=== PATIENT | male | born 1970 | race Caucasian/White ===

== ENCOUNTER 2018-02-01 02:15 | Emergency (ER) | payer MEDICAID, OTHER ==
[~2018-02-01] VITALS: Ht 188 cm; Wt 85.0 kg
[2018-02-01 03:12] LABS: BASOPHILS # (AUTO) 0.1 X10'3 (0-0.2); BASOPHILS % (AUTO) 1.7 % (0-1); EOSINOPHILS # (AUTO) 0.1 X10'3 (0-0.9); EOSINOPHILS % (AUTO) 1.6 % (0-6); HEMATOCRIT 43.9 % (42.0-52.0); HEMOGLOBIN 14.8 g/dl (14.0-17.9); LYMPHOCYTES # (AUTO) 1.9 X10'3 (1.1-4.8); MEAN CORPUSCULAR HEMOGLOBIN 29.5 PG (27.0-31.0); MEAN CORPUSCULAR HGB CONC 33.8 % (33.0-36.5); MEAN CORPUSCULAR VOLUME 87.5 FL (78-98); MEAN PLATELET VOLUME 7.8 FL (7.4-10.4); MONOCYTES # (AUTO) 0.3 X10'3 (0-0.9); NEUTROPHILS # (AUTO) 2.8 X10'3 (1.8-7.7); NEUTROPHILS % (AUTO) 54.7 % (42-75); PLATELET COUNT 206 X10'3 (140-440); RED BLOOD COUNT 5.02 X10'6 (4.70-6.10); RED CELL DISTRIBUTION WIDTH 20.8 % (11.5-14.5); WHITE BLOOD COUNT 5.2 X10'3 (4.5-11.0)
[2018-02-01 03:24] LABS: ALANINE AMINOTRANSFERASE 39 U/L (12-78); ALBUMIN 3.9 G/DL (3.4-5.0); ALKALINE PHOSPHATASE 62 IU/L (46-116); ANION GAP 14 (8-16); ASPARTATE AMINO TRANSFERASE 48 U/L (10-37); BILIRUBIN,TOTAL 0.4 MG/DL (0.1-1.0); BLOOD UREA NITROGEN 8 MG/DL (7-18); BUN/CREATININE RATIO 8.2 (5.4-32.0); CALCIUM 8.5 MG/DL (8.5-10.1); CHLORIDE 104 MMOL/L (99-107); CREATININE 0.98 MG/DL (0.60-1.10); GLUCOSE 81 MG/DL (70-104); POTASSIUM 3.4 MMOL/L (3.5-5.1); SODIUM 140 MMOL/L (135-145); TOTAL CARBON DIOXIDE 22.3 MMOL/L (24-32); eGFR 82 ML/MIN
[2018-02-01 03:32] LABS: ETHANOL 0.323 GM/DL (0.0-0.010)
[2018-02-01] MEDS ORDERED: normal saline 1000ml 1,000 ML IV ONE (03:55)
[2018-02-01 04:24] LABS: MAGNESIUM 2.2 MG/DL (1.5-2.4)
[2018-02-01 08:37] LABS: URINE AMPHETAMINE SCREEN NEGATIVE (Neg); URINE BARBITUATE SCREEN NEGATIVE (Neg); URINE BENZODIAZEPINES SCREEN NEGATIVE (Neg); URINE CANNABINOID SCREEN NEGATIVE (Neg); URINE COCAINE SCREEN NEGATIVE (Neg); URINE METHADONE SCREEN NEGATIVE (Neg); URINE OPIATE SCREEN NEGATIVE (Neg); URINE PHENCYCLIDINE SCREEN NEGATIVE (Neg)
[2018-02-01 08:50] LABS: CLARITY,URINE CLEAR (Clear); COLOR,URINE YELLOW (Yellow); GLUCOSE, URINE NEGATIVE (Neg); PH,URINE 5.5 (4.8-8.0); PROTEIN,URINE TRACE mg/dl (Neg)
[2018-02-01 08:51] LABS: KETONES,URINE 15 mg/dl (Neg); LEUKOCYTE ESTERASE ,URINE NEGATIVE (Neg); NITRITES, URINE NEGATIVE (Neg); OCCULT BLOOD,URINE MODERATE (Neg); UROBILINOGEN,URINE 0.2 E.U/dL (0.2-1.0)
[2018-02-01 08:54] LABS: UA COLLECTION TYPE NON-SPECIFIED
[2018-02-01 09:02] LABS: RBC,URINE 0-2 /HPF (0-2)
[2018-02-01 09:03] LABS: BACTERIA,URINE FEW /HPF (Neg); SQUAMOUS EPITHELIAL CELL,UR MODERATE /LPF (FEW)
[2018-02-01] MEDS ORDERED: AMLO2.5T2 PO (10:28)
[2018-02-01] MEDS ORDERED: LAMO150T PO (10:28)
[2018-02-01] MEDS ORDERED: amLODIPine 5mg tablet PO SCH (11:00)
[2018-02-01] MEDS ORDERED: lamoTRIgine 100mg tablet PO ONE (12:20)
[2018-02-01 19:00] VITALS: BP 176/86
[2018-02-02] MEDS ORDERED: lamoTRIgine 25mg tablet PO SCH (08:00)
[2018-02-02] MEDS ORDERED: lamoTRIgine 100mg tablet PO SCH (08:00)
== END 2018-02-01 18:45 | disposition home or self-care (01) ==
LOC: ER 02:16
DX: F10.920 Alcohol use, unspecified with intoxication, uncomplicated (principal); M25.572 Pain in left ankle and joints of left foot; M79.642 Pain in left hand; F17.200 Nicotine dependence, unspecified, uncomplicated; I10 Essential (primary) hypertension; Z98.890 Other specified postprocedural states; Z79.899 Other long term (current) drug therapy
CPT/HCPCS: 36415; 73130; 80053; 80305; 80320; 81001; 83735; 84443; 85025; 87088; 99285; J7030

== ENCOUNTER 2018-02-03 04:18 | Emergency (ER) | payer MEDICAID ==
[~2018-02-03 04:18] MED LIST: AMLO2.5T2 PO; LAMO150T PO
== END 2018-02-03 05:31 | disposition left against medical advice (07) ==
LOC: ER 04:19
DX: M25.579 Pain in unspecified ankle and joints of unspecified foot (principal); Z53.21 Procedure and treatment not carried out due to patient leaving prior to being seen by health care provider

== ENCOUNTER 2018-04-05 02:32 | Emergency (ER) | payer MEDICAID, OTHER ==
[~2018-04-05] VITALS: Ht 584.7 cm; Wt 84.0 kg
[~2018-04-05 02:32] MED LIST changes: +LAMO150T2 PO
[2018-04-05 02:35] VITALS: BP 132/85
[2018-04-05] MEDS ORDERED: normal saline 1000ml 1,000 ML IV ONE (03:45)
[2018-04-05] MEDS ORDERED: acetaminophen 325mg tablet PO ONE (05:30)
[2018-04-05] MEDS ORDERED: LAMO150T PO (05:40)
== END 2018-04-05 06:11 | disposition home or self-care (01) ==
LOC: ER 02:32
DX: M23.8X1 Other internal derangements of right knee (principal); G40.909 Epilepsy, unspecified, not intractable, without status epilepticus; F10.129 Alcohol abuse with intoxication, unspecified; M25.461 Effusion, right knee; I10 Essential (primary) hypertension; Z76.0 Encounter for issue of repeat prescription; Z98.890 Other specified postprocedural states; Z79.899 Other long term (current) drug therapy; Y90.9 Presence of alcohol in blood, level not specified
CPT/HCPCS: 29505; 73564; 99284; J7030

== ENCOUNTER 2018-04-23 15:37 | Emergency (ER) | payer OTHER ==
[~2018-04-23] VITALS: Ht 185.4 cm; Wt 84.0 kg
[~2018-04-23 15:37] MED LIST changes: -LAMO150T2 PO
[2018-04-23] MEDS ORDERED: ondansetron 4mg rapidly disintigrating tab PO STA (16:08)
[2018-04-23 17:05] VITALS: BP 161/104
== END 2018-04-23 17:07 | disposition home or self-care (01) ==
LOC: ER 15:38
DX: S00.03XA Contusion of scalp, initial encounter (principal); G40.909 Epilepsy, unspecified, not intractable, without status epilepticus; I10 Essential (primary) hypertension; F17.200 Nicotine dependence, unspecified, uncomplicated; Z98.890 Other specified postprocedural states; Z60.2 Problems related to living alone; Z59.0 Homelessness; Z79.899 Other long term (current) drug therapy; W18.39XA Other fall on same level, initial encounter; Y93.89 Activity, other specified; Y92.89 Other specified places as the place of occurrence of the external cause; Y99.8 Other external cause status
CPT/HCPCS: 70450; 82948; 99284

== ENCOUNTER 2018-04-23 18:30 | Emergency (ER) | payer OTHER ==
[~2018-04-23] VITALS: Ht 188 cm; Wt 79.5 kg
[2018-04-23] MEDS ORDERED: LORazepam 1 MG tablet PO STA (18:44)
[2018-04-23] MEDS ORDERED: lamoTRIgine 100mg tablet PO STA ×2 (18:51→18:55)
[2018-04-23] MEDS ORDERED: lamoTRIgine 25mg tablet PO ONE (19:00)
[2018-04-23 21:25] VITALS: BP 152/96
== END 2018-04-23 21:27 | disposition home or self-care (01) ==
LOC: ER 18:30
DX: S00.03XA Contusion of scalp, initial encounter (principal); G40.909 Epilepsy, unspecified, not intractable, without status epilepticus; I10 Essential (primary) hypertension; Z98.890 Other specified postprocedural states; Z59.0 Homelessness; Z60.2 Problems related to living alone; Z79.899 Other long term (current) drug therapy; W18.39XA Other fall on same level, initial encounter; Y93.89 Activity, other specified; Y92.89 Other specified places as the place of occurrence of the external cause; Y99.8 Other external cause status
CPT/HCPCS: 70450; 99284

== ENCOUNTER 2019-04-18 19:24 | Emergency (ER) | payer MEDICAID ==
[~2019-04-18] VITALS: Ht 188 cm; Wt 81.8 kg
--- NOTE | 2019-04-18 19:48 | NUR ---
Patient requests I contact his Morenita and let her know he is in the ER. Morenita is contacted and wishes to speak with the patient. Phone placed in the patient's room and his is transferred in to his room.
--- NOTE | 2019-04-18 20:45 | NUR ---
CHARISSA COATES AT BEDSIDE CHECKED THE BOTTOM OF THE PT ,PT SKIN EXCORIATED ALL INFLAMMED AND RED,TENDER TO TOUCH.PT HAD BM FROM 3-4 DAYS AND HAS NOT BEEN WIPING HIMSELF ,THE FECAL MATTER STUCK TO THE BUTTOCKS DIFFICULT TO GET OFF BY WIPES.
[2019-04-18 20:52] LABS: BASOPHILS % (AUTO) 0.5 % (0-1); LYMPHOCYTES # (AUTO) 0.8 X10'3 (1.1-4.8); MONOCYTES # (AUTO) 1.3 X10'3 (0-0.9); MONOCYTES % (AUTO) 15.9 % (2-12)
[2019-04-18 20:53] LABS: EOSINOPHILS % (AUTO) 0.2 % (0-6); HEMATOCRIT 39.3 % (42.0-52.0); HEMOGLOBIN 13.6 g/dl (14.0-17.9); LYMPHOCYTES % (AUTO) 10.3 % (21-51); MEAN CORPUSCULAR HEMOGLOBIN 33.3 PG (27.0-31.0); MEAN CORPUSCULAR HGB CONC 34.6 g/dL (33.0-36.5); MEAN CORPUSCULAR VOLUME 96.2 FL (78-98); MEAN PLATELET VOLUME 8.4 FL (7.4-10.4); NEUTROPHILS # (AUTO) 5.9 X10'3 (1.8-7.7); NEUTROPHILS % (AUTO) 73.1 % (42-75); PLATELET COUNT 253 X10'3 (140-440); RED BLOOD COUNT 4.08 X10'6 (4.70-6.10); RED CELL DISTRIBUTION WIDTH 13.9 % (11.5-14.5)
[2019-04-18 21:04] LABS: ALANINE AMINOTRANSFERASE 46 U/L (12-78); ALBUMIN 2.8 G/DL (3.4-5.0); ALBUMIN/GLOBULIN RATIO 0.7 (1.1-1.5); ALKALINE PHOSPHATASE 91 IU/L (46-116); ANION GAP 16 (8-16); ASPARTATE AMINO TRANSFERASE 36 U/L (10-37); BILIRUBIN,TOTAL 0.7 MG/DL (0.1-1.0); BLOOD UREA NITROGEN 4 MG/DL (7-18); BUN/CREATININE RATIO 5.1 (5.4-32.0); CALCIUM 8.6 MG/DL (8.5-10.1); CHLORIDE 91 MMOL/L (99-107); CREATININE 0.79 MG/DL (0.60-1.10); GLUCOSE 102 MG/DL (70-104); SODIUM 128 MMOL/L (135-145); TOTAL CARBON DIOXIDE 21.2 MMOL/L (24-32); TOTAL PROTEIN 7.1 G/DL (6.4-8.2); eGFR > 90 ML/MIN
[2019-04-18] MEDS ORDERED: lamoTRIgine 100mg tablet PO STA (21:12)
--- NOTE | 2019-04-18 21:15 | NUR ---
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
[2019-04-18 21:20] LABS: PLATELET ESTIMATE NORMAL; TOTAL CELLS COUNTED 100
[2019-04-18 21:21] LABS: LARGE PLATELETS MODERATE
[2019-04-18 21:24] LABS: POTASSIUM 2.2 MMOL/L (3.5-5.1)
[2019-04-18] MEDS ORDERED: potassium chloride 10mEq ER tablet PO ONE (22:00)
[2019-04-18] MEDS ORDERED: potassium Cl 10 mEq/100mL bag IV ONE (22:00)
[2019-04-18] MEDS ORDERED: probenecid 500mg tablet PO ONE (22:15)
[2019-04-18] MEDS ORDERED: piperacillin/tazo 3.375gm/50ml 50 ML IV ONE (22:15)
[2019-04-18 22:17] LABS: CLARITY,URINE CLEAR (Clear); COLOR,URINE YELLOW (Yellow); GLUCOSE, URINE NEGATIVE (Neg); KETONES,URINE NEGATIVE (Neg); LEUKOCYTE ESTERASE ,URINE NEGATIVE (Neg); NITRITES, URINE NEGATIVE (Neg); OCCULT BLOOD,URINE NEGATIVE (Neg); PROTEIN,URINE NEGATIVE (Neg); UROBILINOGEN,URINE 0.2 E.U/dL (0.2-1.0)
[2019-04-18 22:19] LABS: UA COLLECTION TYPE VOIDED
[2019-04-18 23:02] VITALS: BP 124/74
[2019-04-19] MEDS ORDERED: CEPH500C5 PO (01:03)
[2019-04-19] MEDS ORDERED: DOXY100C2 PO (01:03)
[2019-04-19] MEDS ORDERED: LAMO200T2 PO (01:06)
[2019-04-19] MEDS ORDERED: potassium Cl 20 mEq SR tablet PO SCH ×2 (01:26→08:00)
[2019-04-22] MEDS ORDERED: CEPH500C5 PO (23:14)
== END 2019-04-19 02:37 | disposition home or self-care (01) ==
LOC: ER 19:25
DX: E87.6 Hypokalemia (principal); L03.317 Cellulitis of buttock; F10.10 Alcohol abuse, uncomplicated; R10.84 Generalized abdominal pain; R56.9 Unspecified convulsions; I10 Essential (primary) hypertension; Z98.890 Other specified postprocedural states; Z59.0 Homelessness; Z79.2 Long term (current) use of antibiotics; Z79.899 Other long term (current) drug therapy
CPT/HCPCS: 36415; 80053; 81003; 84132; 85025; 85610; 93005; 96365; 96366; 96368; 99284; J2543; J3480

== ENCOUNTER → 2019-04-22 | Emergency (ER) | payer MEDICAID ==
[~2019-04-22] VITALS: Ht 188 cm; Wt 65.0 kg
[~2019-04-22] MED LIST changes: +CEPH500C5 PO; +CefTRIAXone/D5W-Rocephin 1gm 50 ML IV ONE; +DOXY100C2 PO; +LAMO200T2 PO; +normal saline 1000ML IV soln IVB ONE; +potassium Cl 20 mEq SR tablet PO ONE
--- NOTE | 2019-04-22 21:35 | NUR ---
ATTEMPTED TO OBTAIN UA. PT STATES "I JUST WENT AND SOAKED THE BED." URINAL LEFT WITH PT-STATES "I WILL TRY."
[2019-04-22 22:00] LABS: BASOPHILS # (AUTO) 0.1 X10'3 (0-0.2); BASOPHILS % (AUTO) 0.5 % (0-1); EOSINOPHILS % (AUTO) 0.4 % (0-6); HEMATOCRIT 38.3 % (42.0-52.0); HEMOGLOBIN 13.1 g/dl (14.0-17.9); LYMPHOCYTES # (AUTO) 1.6 X10'3 (1.1-4.8); LYMPHOCYTES % (AUTO) 13.7 % (21-51); MEAN CORPUSCULAR HEMOGLOBIN 33.4 PG (27.0-31.0); MEAN CORPUSCULAR HGB CONC 34.1 g/dL (33.0-36.5); MONOCYTES # (AUTO) 1.1 X10'3 (0-0.9); MONOCYTES % (AUTO) 9.6 % (2-12); NEUTROPHILS % (AUTO) 75.8 % (42-75); PLATELET COUNT 339 X10'3 (140-440); RED BLOOD COUNT 3.91 X10'6 (4.70-6.10); WHITE BLOOD COUNT 11.9 X10'3 (4.5-11.0)
[2019-04-22 22:11] LABS: ALANINE AMINOTRANSFERASE 43 U/L (12-78); ALBUMIN 2.7 G/DL (3.4-5.0); ALBUMIN/GLOBULIN RATIO 0.6 (1.1-1.5); ALKALINE PHOSPHATASE 91 IU/L (46-116); ANION GAP 13 (8-16); ASPARTATE AMINO TRANSFERASE 34 U/L (10-37); BILIRUBIN,TOTAL 0.5 MG/DL (0.1-1.0); BLOOD UREA NITROGEN 4 MG/DL (7-18); BUN/CREATININE RATIO 5.6 (5.4-32.0); CALCIUM 8.5 MG/DL (8.5-10.1); CHLORIDE 94 MMOL/L (99-107); CREATININE 0.72 MG/DL (0.60-1.10); GLUCOSE 102 MG/DL (70-104); LIPASE 801 U/L (73-393); SODIUM 129 MMOL/L (135-145); TOTAL CARBON DIOXIDE 21.8 MMOL/L (24-32); TOTAL PROTEIN 7.1 G/DL (6.4-8.2); eGFR > 90 ML/MIN
[2019-04-22 22:16] LABS: POTASSIUM 2.6 MMOL/L (3.5-5.1)
[2019-04-22] MEDS: potassium Cl 10 mEq/100mL bag IV SCH ×2 (22:24→23:30)
[2019-04-23 00:03] VITALS: BP 115/79
--- NOTE | 2019-04-23 00:34 | NUR ---
CALLED [facility] FOR RIDE TO [place]. ETA 15 MINS
== END | disposition home or self-care (01) ==
LOC: ER 20:22
DX: L03.317 Cellulitis of buttock (principal); E87.6 Hypokalemia; E87.1 Hypo-osmolality and hyponatremia; F10.10 Alcohol abuse, uncomplicated; R10.84 Generalized abdominal pain; I10 Essential (primary) hypertension; Z98.890 Other specified postprocedural states; Z59.0 Homelessness; Z79.2 Long term (current) use of antibiotics; Z79.899 Other long term (current) drug therapy
CPT/HCPCS: 36415; 74176; 80053; 83690; 85025; 96365; 96366; 96368; 99284; J0696; J3480; J7030

== ENCOUNTER 2019-05-17 01:13 | Emergency (ER) | payer MEDICAID ==
[~2019-05-17] VITALS: Ht 188 cm; Wt 75.0 kg
[~2019-05-17 01:13] MED LIST changes: -CEPH500C5 PO; -CefTRIAXone/D5W-Rocephin 1gm 50 ML IV ONE; -DOXY100C2 PO; -normal saline 1000ML IV soln IVB ONE; -potassium Cl 20 mEq SR tablet PO ONE
[2019-05-17 01:16] VITALS: BP 110/72
[2019-05-17] MEDS ORDERED: normal saline 1000ml 1,000 ML IV ONE (02:00)
[2019-05-17] MEDS ORDERED: levetiracetam inj 1,000 MG in normal saline 100ml IV soln 90 ML IV ONE (02:00)
[2019-05-17] MEDS ORDERED: ketorolac trometh. 30mg/ml inj. IV ONE (02:00)
[2019-05-17] MEDS ORDERED: levetiracetam-NS 1000mg/100ml 100 ML IV ONE (02:06)
== END 2019-05-17 02:30 | disposition home or self-care (01) ==
LOC: ER 01:13
DX: G40.909 Epilepsy, unspecified, not intractable, without status epilepticus (principal); I10 Essential (primary) hypertension; F10.99 Alcohol use, unspecified with unspecified alcohol-induced disorder; Z98.890 Other specified postprocedural states; Z60.2 Problems related to living alone; Z59.0 Homelessness; Z79.899 Other long term (current) drug therapy; Y90.9 Presence of alcohol in blood, level not specified
CPT/HCPCS: 96374; 96375; 99283; J1885; J1953; J7030

== ENCOUNTER 2019-07-13 00:12 | Emergency (ER) | payer MEDICAID ==
[~2019-07-13] VITALS: Ht 188 cm; Wt 75.9 kg
[~2019-07-13 00:12] MED LIST changes: -LAMO150T PO; +LAMO150T6 PO; -LAMO200T2 PO
[2019-07-13] MEDS ORDERED: lamoTRIgine 100mg tablet PO STA (00:29)
--- NOTE | 2019-07-13 00:44 | NUR ---
SEIZURE PADS PLACED
[2019-07-13 01:02] LABS: BASOPHILS # (AUTO) 0.1 X10'3 (0-0.2); EOSINOPHILS # (AUTO) 0.1 X10'3 (0-0.9); EOSINOPHILS % (AUTO) 2.6 % (0-6); LYMPHOCYTES # (AUTO) 2.2 X10'3 (1.1-4.8); MONOCYTES # (AUTO) 0.4 X10'3 (0-0.9); NEUTROPHILS # (AUTO) 0.9 X10'3 (1.8-7.7); RED CELL DISTRIBUTION WIDTH 17.7 % (11.5-14.5); WHITE BLOOD COUNT 3.8 X10'3 (4.5-11.0)
[2019-07-13 01:04] LABS: ALANINE AMINOTRANSFERASE 39 U/L (12-78); ALBUMIN 3.9 G/DL (3.4-5.0); ALBUMIN/GLOBULIN RATIO 0.8 (1.1-1.5); ALKALINE PHOSPHATASE 92 IU/L (46-116); ANION GAP 15 (8-16); ASPARTATE AMINO TRANSFERASE 83 U/L (10-37); BASOPHILS % (AUTO) 3.4 % (0-1); BILIRUBIN,TOTAL 0.4 MG/DL (0.1-1.0); BLOOD UREA NITROGEN 5 MG/DL (7-18); BUN/CREATININE RATIO 7.1 (5.4-32.0); CALCIUM 8.8 MG/DL (8.5-10.1); CHLORIDE 102 MMOL/L (99-107); GLUCOSE 100 MG/DL (70-104); HEMATOCRIT 41.1 % (42.0-52.0); HEMOGLOBIN 13.9 g/dl (14.0-17.9); LYMPHOCYTES % (AUTO) 58.3 % (21-51); MEAN CORPUSCULAR HEMOGLOBIN 31.4 PG (27.0-31.0); MEAN CORPUSCULAR HGB CONC 33.9 g/dL (33.0-36.5); MEAN CORPUSCULAR VOLUME 92.7 FL (78-98); MEAN PLATELET VOLUME 7.3 FL (7.4-10.4); MONOCYTES % (AUTO) 11.5 % (2-12); NEUTROPHILS % (AUTO) 24.2 % (42-75); PLATELET COUNT 262 X10'3 (140-440); POTASSIUM 3.5 MMOL/L (3.5-5.1); RED BLOOD COUNT 4.43 X10'6 (4.70-6.10); SODIUM 141 MMOL/L (135-145); TOTAL CARBON DIOXIDE 23.6 MMOL/L (24-32); TOTAL PROTEIN 9.1 G/DL (6.4-8.2); eGFR > 90 ML/MIN
[2019-07-13 01:30] LABS: TOTAL CELLS COUNTED 100
[2019-07-13 01:31] LABS: ANISOCYTOSIS 1+; PLATELET ESTIMATE NORMAL
[2019-07-13] MEDS ORDERED: LAMO100T40 PO (01:40)
[2019-07-13 02:05] VITALS: BP 127/98
== END 2019-07-13 02:07 | disposition home or self-care (01) ==
LOC: ER 00:12
DX: G40.909 Epilepsy, unspecified, not intractable, without status epilepticus (principal); I10 Essential (primary) hypertension; Z59.0 Homelessness; Z98.890 Other specified postprocedural states; Z79.899 Other long term (current) drug therapy
CPT/HCPCS: 36415; 80053; 85025; 99284